=== PATIENT | male | born 1955 | race Caucasian/White ===

== ENCOUNTER 2022-10-29 11:13 | Inpatient (IN) | payer OTHER ==
[~2022-10-29] VITALS: Ht 165.1 cm; Wt 76.2 kg
--- NOTE | 2022-10-29 11:13 | NUR ---
RECEIVED PT FROM BRANDON QUILES. PT BIBA ACLS FOR C/O LEFT SIDED FACIAL DROOP, LEFT SIDE WEAKNESS, PT STEPPED DOWN FOR BED AND FELL TO GROUND, PT UNABLE TO GET BACK UP, ESTIMATED TIME OF EVENT WAS 2100. PT IS AAOX4, LEFT SIDE FACIAL DROOP NOTED WITH LEFT ARM WEAKNESS, AND LEFT LEG DRIFT. PT NOTED WITH MILD ATAXIA. EKG OBTAINED AND GIVEN TO DR. GARCIA. BS 330. NORMAL S1S2 NOTED. RESP E/U. ON R/A. LUNG SOUNDS CTA. DENIES N/V/D/C. ABDOMEN SOFT, NONTENDER, NONDISTENDED. SKIN WARM, CDI, NO EDEMA. DISTAL PULSES NORMAL. SIDERAILS UP X2. DENIES PAIN.
[2022-10-29 11:15] VITALS: BP_SYST 143
--- NOTE | 2022-10-29 11:17 | NUR ---
PT TAKEN FOR CT SCAN AT THIS TIME.
[2022-10-29] MEDS ORDERED: iohexoL 350 mgI/mL, 100 ML INFUS..BTL IV ONE (11:28)
--- NOTE | 2022-10-29 11:38 | NUR ---
PT BACK FROM CT SCAN AND PLACED ON MONITOR.
--- NOTE | 2022-10-29 11:50 | NUR ---
# 20 gauge angiocath placed to RFA. Use of asceptic technique. Opsite placed over site. Blood return noted. Flushed with 10 cc of normal saline. No evidence of infiltration noted. Patient tolerated well.
[2022-10-29 11:51] LABS: BASOPHILS # (AUTO) 0.1 K/uL (0.0-0.2); BASOPHILS % (AUTO) 0.5 % (0.0-2.0); EOSINOPHILS % (AUTO) 0.2 % (0.0-4.0); HEMATOCRIT 35.5 % (36-54); HEMOGLOBIN 11.9 g/dL (14.0-18.0); LYMPHOCYTES # (AUTO) 0.8 K/uL (1.0-5.5); LYMPHOCYTES % (AUTO) 6.9 % (20.5-51.5); MEAN CORPUSCULAR HEMOGLOBIN 27 pg (27-31); MEAN CORPUSCULAR HGB CONC 34 % (32-36); MEAN CORPUSCULAR VOLUME 82 fL (79.0-98.0); MONOCYTES # (AUTO) 1.2 K/uL (0.0-1.0); MONOCYTES % (AUTO) 10.8 % (1.7-9.3); NEUTROPHILS # (AUTO) 9.3 K/uL (1.8-7.7); NEUTROPHILS % (AUTO) 81.6 % (40.0-70.0); PLATELET COUNT (AUTO) 305 K/uL (130-430); RED BLOOD CELL COUNT(AUTO) 4.34 MIL/uL (4.2-6.2); RED CELL DISTRIBUTION WIDTH 13.1 % (9.0-15.0); WHITE BLOOD COUNT (AUTO) 11.4 K/uL (4.8-10.8)
[2022-10-29] MEDS ORDERED: ASPIRIN 325 MG TABLET PO ONE (12:00)
[2022-10-29 12:05] LABS: ANION GAP 9 (5-15); CALCIUM 8.8 mg/dL (8.4-11.0); CHLORIDE 98 mmol/L (98-107); CREATININE 1.02 mg/dL (0.55-1.30); GFR AFRICAN AMERICAN 94 mL/min (>90); GLUCOSE 320 mg/dL (70-99); UREA NITROGEN, BLOOD 22 mg/dL (8-21)
[2022-10-29 12:12] LABS: ALANINE AMINOTRANSFERASE 16 U/L (12-78); ALBUMIN 2.5 g/dL (3.4-4.8); ASPARTATE AMINOTRANSFERASE 17 U/L (10-37); TOTAL BILIRUBIN 0.5 mg/dL (0.0-1.0)
--- NOTE | 2022-10-29 12:21 | NUR ---
BEDSIDE SWALLOW EVAL COMPLETED. PT ABLE TO SWALLOW THIN LIQUIDS WITH NO S/S OF DIFFICULTY. ASA 325MG PO GIVEN.
[2022-10-29] MEDS ORDERED: HEPARIN SODIUM,PORCINE 5,000 UNITS/ML VIAL IVP ONE (12:30)
--- NOTE | 2022-10-29 12:31 | NUR ---
PT 0XYGEN DESATURATES WHEN SPEAKING TO 94%. N/C AT 2LPM PLACED. PT O2 SAT AT 97% A THIS TIME.
--- NOTE | 2022-10-29 12:32 | NUR ---
DR. ROMERO AT BEDSIDE TO REPORT TO PT HE MAY TRANSFER TO [facility] FOR HIGHER LEVEL OF CARE. PT AGREES WITH POC.
--- NOTE | 2022-10-29 12:34 | NUR ---
PT RECEIVING TELENEURO EVALUATION AT THIS TIME.
--- NOTE | 2022-10-29 13:55 | NUR ---
COVID SWAB COLLECTED AND SENT TO LAB.
--- NOTE | 2022-10-29 14:00 | NUR ---
HEPARIN 5000MG IVP GIVEN.
[2022-10-29 14:05] LABS: BILIRUBIN,URINE NEGATIVE (NEGATIVE); BLOOD, URINE NEGATIVE (NEGATIVE); CLARITY/URINE CLEAR (CLEAR); COLOR,URINE YELLOW (YELLOW); GLUCOSE,URINE 3+ (NEGATIVE); KETONES,URINE 2+ (NEGATIVE); LEUKOCYTE ESTERASE ,URINE NEGATIVE (NEGATIVE); NITRITE, URINE NEGATIVE (NEGATIVE); PH,URINE 5.5 (5.0-8.0); PROTEIN URINE NEGATIVE (NEGATIVE); UROBILINOGEN,URINE 0.2 (0.2-1.0)
--- NOTE | 2022-10-29 14:10 | NUR ---
DR. HERNANDEZ AT BEDSIDE TO ASSESS PT.
[2022-10-29 14:28] LABS: BARBITURATE, URINE NEGATIVE (NEG <=200); BENZODIAZEPINE, URINE NEGATIVE (NEG <=150); CANNABINOID, URINE NEGATIVE (NEG <=50); COCAINE, URINE NEGATIVE (NEG <=150); METHAMPHETAMINES SCREEN,URINE NEGATIVE (NEG <=500); OPIATE, URINE NEGATIVE (NEG <=100); PHENCYCLIDINE SCREEN,URINE NEGATIVE (NEG <=25); UR TRICYCLIC ANTIDEPRESSANTS NEGATIVE (NEG <=300); URINE AMPHETAMINE NEGATIVE (NEG <=500); URINE METHADONE NEGATIVE (NEG <=200); URINE OXYCODONE SCREEN NEGATIVE (NEG <=100); URINE PROPOXYPHENE SCREEN NEGATIVE (NEG <=300)
[2022-10-29] MEDS ORDERED: MORPHINE 2 MG/ML INJ. SYRINGE IVP PRN (15:30)
[2022-10-29] MEDS ORDERED: ONDANSETRON HCL 4 MG/2 ML VIAL IVP PRN (15:30)
[2022-10-29] MEDS ORDERED: ACETAMINOPHEN 325 MG TABLET PO PRN ×2 (15:30→20:15)
[2022-10-29 15:44] LABS: CREATINE KINASE MB 3.1 ng/mL (0-3.6)
--- NOTE | 2022-10-29 15:46 | NUR ---
PT RECEIVING ECHO AT THIS TIME.
--- NOTE | 2022-10-29 15:47 | NUR ---
Admit bed requested Patient will be admitted to care of . Admitted to TELEMETRY unit. Diagnosis ACUTE CORONARY SYNDROME Inpatient (Yes or No) YES Observation (Yes or No) NO Orientation concerns or request close to nursing station (Yes or No) NO Covid Status NEGATIVE On vent or bipap NO Isolation requirements NONE Needs a sitter NONE From Home (Yes or if No enter name of facility) YES Requires Dialysis (Yes or No) NO Med Rec Completed (Yes of No) YES
[2022-10-29] MEDS ORDERED: *LOVENOX 1MG/KG Q12H/PHARMACY XX ONE (18:30)
[2022-10-29] MEDS ORDERED: INSULIN ASPART 100 UNITS/ML, 10 ML VIAL (NovoLOG) SUBCUT PRN (18:30)
--- NOTE | 2022-10-29 19:49 | NUR ---
ENDORSED PT TO SHEREE TAYLOR, AND THEN ENDORSED TO [facility] T[facility] FOR TRANSFER TO ICU.
--- NOTE | 2022-10-29 19:50 | NUR ---
ASSUMED CARE OF PATIENT, BRANDON BENTLEY
--- NOTE | 2022-10-29 19:53 | NUR ---
ENDORSED PT TO BRANDON BENTLEY. ALL QUESTIONS AND CONCERNS ADDRESSED.
--- NOTE | 2022-10-29 20:04 | NUR ---
MRSA SWAB COLLECTED AND SENT TO LAB.
--- NOTE | 2022-10-29 20:10 | NUR ---
PATIENT FINISHED HIS MEAL TRAY WITH NO ISSUES
--- NOTE | 2022-10-29 20:30 | NUR ---
Called Pharmacy for lovenox and Coreg. Pharmacy will send down
[2022-10-29] MEDS ORDERED: ATORVASTATIN 20 MG TABLET PO SCH (21:00)
[2022-10-29] MEDS ORDERED: ENOXAPARIN SODIUM 80 MG/0.8 ML SYRINGE SUBCUT ONE (21:15)
--- NOTE | 2022-10-29 21:32 | NUR ---
PATIENT WANTED TO REST. PATIENT POSITIONED FOR COMFORT. LIGHTS TURNED OFF. NO ACUTE DISTRESS. VITAL SIGNS STABLE.
[2022-10-29] MEDS: CARVEDILOL 3.125 MG TABLET (COREG) PO SCH (21:36)
--- NOTE | 2022-10-29 22:30 | NUR ---
PATIENT RESTING WITH EYES CLOSED. VITAL SIGNS STABLE.
--- NOTE | 2022-10-29 22:43 | NUR ---
Patient will be admitted to care of Dr. Malave (Admitted). Admitted to ICU unit. Will go to room 2. Belongings list completed. Complete and up to date summary report printed. SBAR report to be given at bedside with opportunity for questions.
[2022-10-29 23:00] VITALS: BP_SYST 104
--- NOTE | 2022-10-29 23:24 | NUR ---
CONSULTATION PAGED/CALLED Reason for Consultation: ACS Person Who was Notified: tad Consulting Physician: angie Latin Teacher Specialty: CV Ordering Physician: mariela
--- NOTE | 2022-10-29 23:38 | NUR ---
CONSULTATION PAGED/CALLED Reason for Consultation: rule out CVA Person Who was Notified: left voicemail on cellphone Consulting Physician: Gia Photoengraving Finisher Specialty: neuro Ordering Physician: mariela
[2022-10-30] VITALS (23 sets, daily range): BP systolic 92–125
[2022-10-30 05:58] LABS: BASOPHILS % (AUTO) 0.2 % (0.0-2.0); EOSINOPHILS # (AUTO) 0.2 K/uL (0.0-0.4); EOSINOPHILS % (AUTO) 1.8 % (0.0-4.0); HEMATOCRIT 34.6 % (36-54); HEMOGLOBIN 11.9 g/dL (14.0-18.0); LYMPHOCYTES # (AUTO) 1.5 K/uL (1.0-5.5); LYMPHOCYTES % (AUTO) 14.8 % (20.5-51.5); MEAN CORPUSCULAR HEMOGLOBIN 29 pg (27-31); MEAN CORPUSCULAR HGB CONC 34 % (32-36); MEAN CORPUSCULAR VOLUME 83 fL (79.0-98.0); MONOCYTES % (AUTO) 10.1 % (1.7-9.3); NEUTROPHILS # (AUTO) 7.5 K/uL (1.8-7.7); NEUTROPHILS % (AUTO) 73.1 % (40.0-70.0); PLATELET COUNT (AUTO) 286 K/uL (130-430); RED BLOOD CELL COUNT(AUTO) 4.17 MIL/uL (4.2-6.2); RED CELL DISTRIBUTION WIDTH 13.6 % (9.0-15.0); WHITE BLOOD COUNT (AUTO) 10.3 K/uL (4.8-10.8)
[2022-10-30 06:23] LABS: CALCIUM 8.8 mg/dL (8.4-11.0); CREATININE 0.85 mg/dL (0.55-1.30)
[2022-10-30 06:26] LABS: ALBUMIN 2.5 g/dL (3.4-4.8); THYROID STIMULATING HORMONE 0.71 uIu/mL (0.34-4.82); TOTAL BILIRUBIN 0.4 mg/dL (0.0-1.0)
[2022-10-30] MEDS: INSULIN LISPRO SLIDING SCALE 100 UNITS/ML, 3 ML VIAL (humaLOG) SUBCUT PRN ×2 (06:58→21:04)
[2022-10-30] MEDS ORDERED: ASPIRIN 81 MG TAB.CHEW PO SCH (09:00)
[2022-10-30] MEDS: ASPIRIN 81 MG TAB.CHEW PO SCH (09:46)
[2022-10-30] MEDS: ATORVASTATIN 20 MG TABLET PO SCH (09:47)
[2022-10-30] MEDS: CARVEDILOL 3.125 MG TABLET (COREG) PO SCH ×2 (09:48→21:00)
[2022-10-30] MEDS: ENOXAPARIN SODIUM 80 MG/0.8 ML SYRINGE SUBCUT SCH ×2 (09:48→21:00)
[2022-10-30] MEDS ORDERED: GLUCOSE (DEXTROSE) ORAL GEL -Adults PO PRN (10:45)
[2022-10-30] MEDS ORDERED: DEXTROSE 50%-WATER 50 ML DISP.SYRIN IVP PRN (10:45)
[2022-10-30] MEDS ORDERED: D5W 1,000 ML IV PRN (10:45)
--- NOTE | 2022-10-30 12:35 | NUR ---
Sales And Marketing Administrator re: code status Met with patient at bedside to discuss his advance director. The patient has an advance directive in his physical chart. The patient is a DNR with no blood service. I completed his Code status, top section with his at bedside. We completed the top section. The patient continues to state he wants to remain a DNR with comfort measures only. I reviewed the code status form with BRANDON Reyes and placed back in the physical chart. The patient advised that the form will be competed and signed off with lowell lamb to make an official order. At this time, there is nothing else needed from social welfare clerk.
--- NOTE | 2022-10-30 18:15 | NUR ---
Patient Transferred to Telemetry Rm. 118A for Alternate Level of Care. Patioent Addendum: 10/30/22 at 1832 by Eric Lewis RN Patient Tolerated Transfer with Detailed Report Given to JOHN Duggan. Continue to Monitor.
--- NOTE | 2022-10-30 18:23 | NUR ---
received pt from ICU nurse. breathing is even and unlabored on 2l nc. vitals are stable. no s/s of distress or pain reported. brought the patient fresh water. All needs met at this time ,safety checks made and call light within reach. will endorse to cnc machinist 2nd shift nurse.
[2022-10-31 01:10] VITALS: BP_SYST 93
[2022-10-31 04:53] VITALS: BP_SYST 106
[2022-10-31] MEDS: INSULIN LISPRO SLIDING SCALE 100 UNITS/ML, 3 ML VIAL (humaLOG) SUBCUT PRN (06:49)
--- NOTE | 2022-10-31 07:15 | NUR ---
CLOSING NOTES PT REFUSE LOVENOX ANDHIS MEDICATION OFCOREG WAS HELD B/C HIS BP WAS LOW. PT RESTING
[2022-10-31 07:24] LABS: BASOPHILS # (AUTO) 0.1 K/uL (0.0-0.2); BASOPHILS % (AUTO) 0.9 % (0.0-2.0); EOSINOPHILS # (AUTO) 0.2 K/uL (0.0-0.4); EOSINOPHILS % (AUTO) 2.6 % (0.0-4.0); HEMATOCRIT 35.7 % (36-54); LYMPHOCYTES # (AUTO) 1.6 K/uL (1.0-5.5); LYMPHOCYTES % (AUTO) 17.4 % (20.5-51.5); MEAN CORPUSCULAR HEMOGLOBIN 28 pg (27-31); MEAN CORPUSCULAR HGB CONC 34 % (32-36); MEAN CORPUSCULAR VOLUME 82 fL (79.0-98.0); MONOCYTES # (AUTO) 1.2 K/uL (0.0-1.0); MONOCYTES % (AUTO) 12.8 % (1.7-9.3); NEUTROPHILS # (AUTO) 6.3 K/uL (1.8-7.7); NEUTROPHILS % (AUTO) 66.3 % (40.0-70.0); PLATELET COUNT (AUTO) 286 K/uL (130-430); RED BLOOD CELL COUNT(AUTO) 4.34 MIL/uL (4.2-6.2); RED CELL DISTRIBUTION WIDTH 13.6 % (9.0-15.0); WHITE BLOOD COUNT (AUTO) 9.5 K/uL (4.8-10.8)
[2022-10-31 08:00] VITALS: BP_SYST 103
[2022-10-31 08:00] LABS: ALBUMIN 2.4 g/dL (3.4-4.8); CALCIUM 8.8 mg/dL (8.4-11.0); TOTAL BILIRUBIN 0.3 mg/dL (0.0-1.0)
--- NOTE | 2022-10-31 08:07 | NUR ---
OPENING NOTES: PT IN BED A/O X4. NO S/S OF DISTRESS OR PAIN REPORTED. BREATHING IS EVEN AND UNLABORED ON 2L NC 96%. VITAL SIGNS ARE STABLE. HELPED PATIENT REPOSITION TO EAT BREAKFAST. ALL NEEDS MET AT THIS TIME, SAFETY CHECKS MADE AND CALL LIGHT WITHIN REACH.
[2022-10-31] MEDS: ASPIRIN 81 MG TAB.CHEW PO SCH (08:25)
[2022-10-31] MEDS: ATORVASTATIN 20 MG TABLET PO SCH (08:26)
[2022-10-31] MEDS: CARVEDILOL 3.125 MG TABLET (COREG) PO SCH (08:26)
[2022-10-31] MEDS: ENOXAPARIN SODIUM 80 MG/0.8 ML SYRINGE SUBCUT SCH (08:27)
[2022-10-31] MEDS ORDERED: APIXABAN 2.5 MG TABLET PO SCH (09:00)
--- NOTE | 2022-10-31 10:09 | NUR ---
MD: DR THOMAS AT BEDSIDE DISCUSSING RESULTS OF MRI WITH PATIENT.
[2022-10-31] MEDS ORDERED: GLIP5TAB13 PO (11:43)
[2022-10-31] MEDS ORDERED: APIX2.5T PO (11:43)
[2022-10-31] MEDS ORDERED: ASA81 PO (11:43)
[2022-10-31] MEDS ORDERED: LIP20 PO (11:43)
--- NOTE | 2022-10-31 12:00 | NUR ---
Rounds: Pt in bed relaxing. no s/s of distress or pain reported. breathing even and unlabored on RA 97%. all needs met at this time ,safety checks made and call light within reach.
[2022-10-31 13:08] VITALS: BP_SYST 88
--- NOTE | 2022-10-31 15:25 | NUR ---
>>>PT NOTES<<< PHYSICAL THERAPY EVALUATION COMPLETED. MAY DISCHARGE HOME WITH HOME HEALTH PT ONCE MEDICALLY CLEARED. PATIENT IS INDEPENDENT WITH FUNCTIONAL MOBILITY, HOWEVER, PATIENT REPORTS OF DECREASED FLEXIBILITY ON LEFT HIP WHICH CAN BE ADDRESSED BY HOME HEALTH PT. PLEASE REFER TO EVAL FORM FOR DETAILS.
[2022-10-31 15:56] VITALS: BP_SYST 105
--- NOTE | 2022-10-31 17:14 | NUR ---
discharged. pt d/d home with [facility] and drove home with family.
[2022-10-31] MEDS ORDERED: CARVEDILOL 6.25 MG TABLET (COREG) PO SCH (21:00)
--- NOTE | 2022-11-01 09:20 | NUR ---
[facility] FOR FOLLOW UP Addendum: 11/01/22 at 1013 by Yulissa HARRIS PT HAS KINDLUIS ENRIQUE LONG[facility]TERM COORDINATED BY CERDA (CHRISTINA). H/H INIRVIN
== END 2022-10-31 17:25 | disposition home health service (06) | DRG 64 ==
LOC: SED 11:13 → STU 15:22 → SIC 20:59 → STU 10-30 18:00
PROVIDERS: ADMIT Family Medicine; ATTEND Family Medicine
DX: I63.40 Cerebral infarction due to embolism of unspecified cerebral artery (principal); I21.09 ST elevation (STEMI) myocardial infarction involving other coronary artery of anterior wall; G81.94 Hemiplegia, unspecified affecting left nondominant side; Z20.822 Contact with and (suspected) exposure to COVID-19; I11.0 Hypertensive heart disease with heart failure; I50.9 Heart failure, unspecified; R29.704 NIHSS score 4; E11.9 Type 2 diabetes mellitus without complications; Z93.3 Colostomy status; Z79.01 Long term (current) use of anticoagulants; E11.65 Type 2 diabetes mellitus with hyperglycemia; R29.810 Facial weakness
CPT/HCPCS: 36415; 70450-TC; 70496; 70498; 70551; 71045; 76376; 80053; 80061; 80307; 81000; 81003; 82550; 82553; 82962; 83037; 83880; 84443; 84484; 85025; 87081; 93005; 93306; 97116-GP; 99291; G0378; J1644; J1650; Q9967